=== PATIENT | male | born 1975 | race Caucasian/White ===

== ENCOUNTER 2017-01-17 14:24 | Emergency (ER) | payer OTHER ==
[~2017-01-17] VITALS: Ht 162.6 cm; Wt 90.3 kg
[2017-01-17 16:00] LABS: ASPARTATE AMINO TRANSFERASE 26 U/L (15-37); BLOOD UREA NITROGEN 15 mg/dL (7-18)
[2017-01-17] MEDS ORDERED: OMNIPAQUE 350 MG/ML, 100ML BOTTLE ONE (17:51)
[2017-01-17 18:42] VITALS: BP 126/78
== END 2017-01-17 18:45 | disposition home or self-care (01) ==
LOC: ED 18:17
DX: R10.31 Right lower quadrant pain (principal); R10.11 Right upper quadrant pain
CPT/HCPCS: 36415; 74177; 76870; 80053; 81001; 83690; 85025; 93975; 99285; Q9967

== ENCOUNTER 2018-06-29 10:31 | Emergency (ER) | payer OTHER ==
[~2018-06-29] VITALS: Ht 167.6 cm; Wt 95.5 kg
[2018-06-29] MEDS ORDERED: ALLO300T PO (11:12)
[2018-06-29] MEDS ORDERED: KETOROLAC 30 MG/1 ML ONE (11:43)
[2018-06-29] MEDS ORDERED: KETOROLAC 30 MG/1 ML IM ONE (12:00)
[2018-06-29] MEDS ORDERED: PROCHLORPERAZINE 5 MG/ML, 2ML IVPush ONE (13:30)
[2018-06-29] MEDS ORDERED: SODIUM CHLORIDE FLUSH 10ML SYR IVF ONE (13:30)
[2018-06-29] MEDS ORDERED: DIPHENHYDRAMINE 50 MG/ML, 1ML IVPush ONE (13:30)
[2018-06-29] MEDS ORDERED: SODIUM CHLORIDE 0.9% 1,000ML IVBOLUS ONE (13:30)
[2018-06-29] MEDS ORDERED: PROCHLORPERAZINE 5 MG/ML, 2ML ONE (13:46)
[2018-06-29] MEDS ORDERED: DIPHENHYDRAMINE 50 MG/ML, 1ML ONE (13:47)
[2018-06-29 15:10] VITALS: BP 130/81
== END 2018-06-29 15:53 | disposition home or self-care (01) ==
LOC: ED 13:01
DX: R51 Headache (principal)
CPT/HCPCS: 96372; 96374; 96375; 99284; J0780; J1200; J1885; J7030

== ENCOUNTER 2018-07-02 23:42 | Emergency (ER) | payer OTHER ==
[~2018-07-02] VITALS: Ht 167.6 cm; Wt 95.8 kg
[~2018-07-02 23:42] MED LIST: ALLO300T PO
[2018-07-02 23:44] VITALS: BP 151/91
[2018-07-03] MEDS ORDERED: KETOROLAC 30 MG/1 ML IVPush ONE (00:30)
[2018-07-03] MEDS ORDERED: PROCHLORPERAZINE 5 MG/ML, 2ML IVPush ONE (00:30)
[2018-07-03] MEDS ORDERED: DIPHENHYDRAMINE 50 MG/ML, 1ML IVPush ONE (00:30)
[2018-07-03 00:35] LABS: BASOPHILS # (AUTO) 0.05 x10^3/uL (0-0.1); BASOPHILS % (AUTO) 1 % (0-1); EOSINOPHILS # (AUTO) 0.16 x10^3/uL (0-0.4); EOSINOPHILS % (AUTO) 2 % (1-7); LYMPHOCYTES # (AUTO) 2.98 x10^3/uL (1-3.4); LYMPHOCYTES % (AUTO) 34 % (22-44); MD NO; MEAN CORPUSCULAR HGB CONC 34.5 g/dL (33.2-36.2); MEAN CORPUSCULAR VOLUME 90.1 fL (81-97); MEAN PLATELET VOLUME 6.8 fL (7.4-10.4); MONOCYTES % (AUTO) 8 % (2-9); NEUTROPHILS # (AUTO) 4.96 x10^3/uL (1.8-6.8); NEUTROPHILS % (AUTO) 56 % (42-75); PLATELET COUNT 212 x10^3/uL (130-400); RED BLOOD COUNT 4.79 x10^6/uL (4.38-5.82); RED CELL DISTRIBUTION WIDTH 12.8 % (9.4-14.8)
[2018-07-03] MEDS ORDERED: KETOROLAC 30 MG/1 ML ONE (00:35)
[2018-07-03] MEDS ORDERED: DIPHENHYDRAMINE 50 MG/ML, 1ML ONE (00:35)
[2018-07-03] MEDS ORDERED: PROCHLORPERAZINE 5 MG/ML, 2ML ONE (00:35)
[2018-07-03 00:37] LABS: ALBUMIN 3.7 g/dL (3.4-5.0); ANION GAP 7 mmol/L (5-15); CALCIUM 8.4 mg/dL (8.5-10.1); CHLORIDE 109 mmol/L (98-107); CREATININE 0.92 mg/dL (0.7-1.3)
== END 2018-07-03 01:53 | disposition home or self-care (01) ==
LOC: ED 23:59
DX: G44.219 Episodic tension-type headache, not intractable (principal)
CPT/HCPCS: 36415; 70450; 80048; 82040; 85025; 96374; 96375; 99285; J0780; J1200; J1885